=== PATIENT | female | born 1960 | race Hispanic/Latino ===

== ENCOUNTER 2018-08-09 13:21 | Emergency (ER) | payer SELFPAY ==
[~2018-08-09] VITALS: Ht 152.4 cm; Wt 63.5 kg
[2018-08-09] MEDS ORDERED: AMOXICILLIN500 MG PO (15:46)
[2018-08-09] MEDS ORDERED: ONDANSETRON ODT8 MG PO (15:49)
== END 2018-08-09 16:18 | disposition home or self-care (01) ==
LOC: ED 13:21
DX: J32.9 Chronic sinusitis, unspecified (principal); J30.9 Allergic rhinitis, unspecified
CPT/HCPCS: 70450; 80053; 83690; 85025; 96361; 96374; 96375; 99284-25; J1885; J2405; J2765; J7030